=== PATIENT | female | born 1970 | race African-American/Black ===

== ENCOUNTER 2016-09-10 07:59 | Observation (INO) | payer BC ==
[~2016-09-10] VITALS: Ht 167.6 cm; Wt 95.3 kg
--- NOTE | ~2016-09-10 | EKG ---
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
[~2016-09-10 07:59] MED LIST: AMBIEN 10 MG TA10 MG PO; LASIX 20 MG TAB20 MG PO; OXYCONTIN20 M1 PO; ZOCOR40 MG PO
[2016-09-10 08:01] VITALS: BP 129/56
[2016-09-10] MEDS ORDERED: HYDROCODONE-APA1 TA1 PO (08:17)
[2016-09-10 09:01] LABS: ABSOLUTE NEUTROPHILS 2.2 thou/uL (1.4-8.2); EOSINOPHILS 3.9 % (0.0-3.0); HEMATOCRIT 34.1 % (37.0-47.0); HEMOGLOBIN 11.5 gm/dL (12.0-15.0); MCH 29.5 pg (26.0-34.0); MCHC 33.8 g/dL (28.0-37.0); MCV 87.2 fL (80.0-100.0); PLATELET COUNT 317 thou/uL (150-400); POLYS 36.1 % (36.0-66.0); RBC 3.91 mil/uL (4.20-5.00); RDW 13.2 % (10.5-14.5)
[2016-09-10 09:02] LABS: MANUAL DIFF NO
[2016-09-10 09:08] LABS: ANION GAP 6 mmol/L (7-16); BUN 15 mg/dL (7-18); CALCIUM 8.8 mg/dL (8.5-10.1); CHLORIDE 105 mmol/L (98-107); CO2 30 mmol/L (21-32); CREATININE 0.9 mg/dL (0.6-1.0); GLUCOSE 99 mg/dL (74-106); POTASSIUM 3.9 mmol/L (3.5-5.1); SODIUM 141 mmol/L (136-145)
[2016-09-10 09:13] LABS: ALBUMIN 3.7 g/dL (3.4-5.0); ALKALINE PHOSPHATASE 65 U/L (46-116); DIRECT BILIRUBIN < 0.1 mg/dL (<0.1-0.3); SGOT 21 U/L (15-37); SGPT 33 U/L (30-65); TOTAL BILIRUBIN 0.3 mg/dL (<0.1-1.0); TOTAL PROTEIN 7.8 g/dL (6.4-8.2)
[2016-09-10 10:42] VITALS: BP 108/61
[2016-09-10 11:00] VITALS: BP 112/70
[2016-09-10] MEDS ORDERED: LINZESS290 MCG PO (11:49)
[2016-09-10 20:45] VITALS: BP 102/62
[2016-09-11 04:55] VITALS: BP 124/75
[2016-09-11 06:22] LABS: HEMATOCRIT 37.4 % (37.0-47.0); HEMOGLOBIN 12.4 gm/dL (12.0-15.0); MANUAL DIFF YES; MCH 29.5 pg (26.0-34.0); MCHC 33.1 % (28.0-37.0); MCV 89.1 fL (80.0-100.0); PLATELET COUNT 272 thou/uL (150-400); RDW 13.1 % (10.5-14.5)
[2016-09-11 06:25] LABS: ANION GAP 9 mmol/L (7-16); BUN 14 mg/dL (7-18); CALCIUM 9.1 mg/dL (8.5-10.1); CHLORIDE 103 mmol/L (98-107); CHOLESTEROL 258 mg/dL (<200); CO2 25 mmol/L (21-32); CREATININE 0.9 mg/dL (0.6-1.0); GLUCOSE 118 mg/dL (74-106); HDL CHOLESTEROL 80 mg/dL (>40); LDL CHOLESTEROL 163 mg/dL (<100); MAGNESIUM 1.9 mg/dL (1.8-2.4); POTASSIUM 4.2 mmol/L (3.5-5.1); SODIUM 137 mmol/L (136-145); TC:HDL 3.2 Ratio (Not establshd); TRIGLYCERIDE 79 mg/dL (<150); VLDL 16 mg/dL (<40)
[2016-09-11 08:23] VITALS: BP 123/73
[2016-09-11 08:36] LABS: ABSOLUTE NEUTROPHILS 15.2 thou/uL (1.4-8.2); TOTAL CELL COUNT 100
[2016-09-11 08:37] LABS: ANISOCYTOSIS SLIGHT
[2016-09-11 19:20] VITALS: BP 119/69
[2016-09-12 06:20] VITALS: BP 110/70
[2016-09-12 07:50] VITALS: BP 108/67
[2016-09-12] MEDS ORDERED: LYRICA 50 MG50 MG PO (12:35)
[2016-09-12 12:53] VITALS: BP 108/67
== END 2016-09-12 13:27 | disposition home or self-care (01) ==
LOC: ER 07:59 → EROBS 10:17 → 5S 10:50
PROVIDERS: Emergency Medicine; Nurse Practitioner
DX: M25.511 Pain in right shoulder (principal); M54.12 Radiculopathy, cervical region; M54.9 Dorsalgia, unspecified; G89.29 Other chronic pain; K59.09 Other constipation; E78.5 Hyperlipidemia, unspecified; M79.605 Pain in left leg; F19.90 Other psychoactive substance use, unspecified, uncomplicated; Z72.89 Other problems related to lifestyle

== ENCOUNTER 2017-04-20 12:34 | Emergency (ER) | payer BC ==
[~2017-04-20] VITALS: Ht 167.6 cm; Wt 95.3 kg
--- NOTE | ~2017-04-20 | EKG ---
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1970 Requested By: Jeromy Solis Order Number: [id number] MD: Babatunde Lezama Measurements Intervals [place] Rate: 65 P: 57 [place]: 165 QRS: 39 QRSD: 90 T: -11 QT: 397 QTc: 413 Interpretive Statements Sinus rhythm Probable left atrial enlargement RSR' in V1 or V2, right VCD Nonspecific T abnormalities, inferior leads Borderline ST elevation, anterolateral leads Baseline wander in lead(s) V4 Compared to ECG 09/10/2016 15:09:40 Right ventricular hypertrophy now present Inferior T wave abnormality more pronounced Electronically Signed On 04-21-2017 8:21:18 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
[~2017-04-20 12:34] MED LIST changes: +HYDROCODONE-APA1 TA1 PO; +LINZESS290 MCG PO; +LYRICA 50 MG50 MG PO
[2017-04-20] MEDS ORDERED: AMBIEN 5 MG TABL5 M1 PO (12:38)
[2017-04-20 13:51] LABS: ABSOLUTE NEUTROPHILS 2.2 thou/uL (1.4-8.2); BASOPHILS 0.9 % (0.0-2.0); HEMATOCRIT 36.4 % (37.0-47.0); HEMOGLOBIN 12.4 gm/dL (12.0-15.0); LYMPHOCYTES 54.5 % (24.0-44.0); MCH 29.4 pg (26.0-34.0); MCV 86.4 fL (80.0-100.0); MONOCYTES 5.3 % (1.0-8.0); PLATELET COUNT 307 thou/uL (150-400); POLYS 36.3 % (36.0-66.0); RBC 4.22 mil/uL (4.20-5.00); RDW 12.9 % (10.5-14.5)
[2017-04-20 13:59] LABS: ANION GAP 11 mmol/L (7-16); BUN 7 mg/dL (7-18); CALCIUM 9.4 mg/dL (8.5-10.1); CHLORIDE 104 mmol/L (98-107); CO2 27 mmol/L (21-32); CREATININE 0.8 mg/dL (0.6-1.0); GLUCOSE 104 mg/dL (74-106); POTASSIUM 3.9 mmol/L (3.5-5.1); SODIUM 142 mmol/L (136-145)
[2017-04-20 14:08] LABS: TROPONIN-I < 0.04 ng/mL (<0.06)
[2017-04-20] MEDS ORDERED: LIORESAL 10 MG10 MG PO (14:13)
[2017-04-20] MEDS ORDERED: MEDROLDOSEPACK PO (14:13)
[2017-04-20 15:36] VITALS: BP 98/61
== END 2017-04-20 15:57 | disposition home or self-care (01) ==
LOC: ER 12:34
PROVIDERS: Physician Assistant
DX: M54.12 Radiculopathy, cervical region (principal); M25.511 Pain in right shoulder; E78.00 Pure hypercholesterolemia, unspecified; Z90.710 Acquired absence of both cervix and uterus

== ENCOUNTER 2018-04-26 16:20 | Emergency (ER) | payer BC, OTHER ==
[~2018-04-26] VITALS: Ht 167.6 cm; Wt 93.9 kg
[~2018-04-26 16:20] MED LIST changes: +AMBIEN 5 MG TABL5 M1 PO; +LIORESAL 10 MG10 MG PO; +MEDROLDOSEPACK PO
[2018-04-26 17:27] VITALS: BP 120/81
[2018-04-26] MEDS ORDERED: XANAX 0.5 MG0.5 MG PO (17:40)
== END 2018-04-26 18:03 | disposition home or self-care (01) ==
LOC: ER 16:20
DX: M54.12 Radiculopathy, cervical region (principal); E78.00 Pure hypercholesterolemia, unspecified; Z90.710 Acquired absence of both cervix and uterus; Z95.5 Presence of coronary angioplasty implant and graft

== ENCOUNTER → 2018-04-30 | Outpatient (CLI) | payer BC ==
[~2018-04-30] MED LIST changes: +XANAX 0.5 MG0.5 MG PO
== END ==
LOC: MRI 13:55
DX: M47.812 Spondylosis without myelopathy or radiculopathy, cervical region (principal)

== ENCOUNTER → 2018-05-11 | Outpatient (CLI) | payer BC | LOC: MRI 07:14 | DX: M25.511 Pain in right shoulder (principal) ==

== ENCOUNTER → 2018-07-21 | Outpatient (CLI) | payer BC | LOC: RAD 11:22 | DX: N63.10 Unspecified lump in the right breast, unspecified quadrant (principal); R92.2 Inconclusive mammogram ==

== ENCOUNTER → 2019-02-15 | Outpatient (CLI) | payer BC | LOC: ULTRA 12:35 | DX: N63.20 Unspecified lump in the left breast, unspecified quadrant (principal) ==

== ENCOUNTER 2019-05-03 13:57 | Emergency (ER) | payer BC ==
[~2019-05-03] VITALS: Ht 177.8 cm; Wt 104.3 kg
[2019-05-03] MEDS ORDERED: MOBIC7.5 MG PO (15:47)
[2019-05-03] MEDS ORDERED: NORFLEX100 MG PO (16:11)
[2019-05-03 16:15] VITALS: BP 110/82
== END 2019-05-03 16:15 | disposition home or self-care (01) ==
LOC: ER 13:57
DX: M25.512 Pain in left shoulder (principal); E78.00 Pure hypercholesterolemia, unspecified; Z90.710 Acquired absence of both cervix and uterus; Z90.49 Acquired absence of other specified parts of digestive tract

== ENCOUNTER 2019-12-15 17:48 | Emergency (ER) | payer BC ==
[~2019-12-15] VITALS: Ht 167.6 cm; Wt 95.3 kg
[~2019-12-15 17:48] MED LIST changes: +MOBIC7.5 MG PO; +NORFLEX100 MG PO
[2019-12-15 20:37] LABS: URINE BILIRUBIN NEGATIVE (Negative); URINE BLOOD NEGATIVE (Negative); URINE CLARITY CLEAR; URINE COLOR YELLOW; URINE GLUCOSE-RANDOM* NEGATIVE (Negative); URINE KETONES NEGATIVE (Negative); URINE LEUKOCYTES-REFLEX NEGATIVE (Negative); URINE NITRITE-REFLEX NEGATIVE (Negative); URINE PROTEIN (DIPSTICK) NEGATIVE (Negative); URINE UROBILINOGEN 0.2 E.U./dl (0.2-1.0)
[2019-12-15 20:39] LABS: ANION GAP 11 mmol/L (7-16); BUN 13 mg/dL (7-18); CALCIUM 9.1 mg/dL (8.5-10.1); CHLORIDE 103 mmol/L (98-107); CO2 23 mmol/L (21-32); CREATININE 0.8 mg/dL (0.6-1.0); GLUCOSE 92 mg/dL (74-106); POTASSIUM 4.9 mmol/L (3.5-5.1); SODIUM 137 mmol/L (136-145)
[2019-12-15 20:46] LABS: AMP/METHAMP Negative (Negative); BARBITURATES Negative (Negative); BENZODIAZEPINES Negative (Negative); COCAINE Negative (Negative); METHADONE Negative (Negative); OPIATES Negative (Negative); PCP Negative (Negative)
[2019-12-15 20:47] LABS: ABSOLUTE NEUTROPHILS 6.4 thou/uL (1.4-8.2); BASOPHILS 0.8 % (0.0-2.0); HEMATOCRIT 35.2 % (37.0-47.0); HEMOGLOBIN 12.1 gm/dL (12.0-15.0); LYMPHOCYTES 26.1 % (24.0-44.0); MCH 30.1 pg (26.0-34.0); MCHC 34.5 g/dL (28.0-37.0); MCV 87.3 fL (80.0-100.0); MONOCYTES 5.4 % (1.0-8.0); PLATELET COUNT 381 thou/uL (150-400); POLYS 66.7 % (36.0-66.0); RBC 4.03 mil/uL (4.20-5.00); WBC 9.6 thou/uL (4.0-11.0)
[2019-12-15 20:49] LABS: ALBUMIN 4.1 g/dL (3.4-5.0); SGOT 27 U/L (15-37); SGPT 19 U/L (30-65); TOTAL BILIRUBIN 0.7 mg/dL (0.2-1.0); TOTAL PROTEIN 8.5 g/dL (6.4-8.2); TROPONIN-I <0.06 ng/mL (<0.06)
[2019-12-15 21:12] VITALS: BP 104/62
--- NOTE | 2019-12-16 07:52 | EKG ---
[facility] [place] [address] ELECTROCARDIOGRAM REPORT Name: ERENDIRA KC [id number] Admission: 12/15/19 Attend Phys: Discharge: 12/15/19 Date of : 72 Report #: [id number] THIS REPORT FOR: cc: Khris Baca James A. DO Lundgren, Craig H. 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1970 Requested By: Enrique Jones Order Number: [id number] MD: Babatunde Lezama Measurements Intervals [place] Rate: 71 P: 63 [place]: 164 QRS: 46 QRSD: 88 T: -8 QT: 390 QTc: 424 Interpretive Statements Sinus rhythm Probable left atrial enlargement RSR' in V1 or V2, right VCD Probable left ventricular hypertrophy Borderline T abnormalities, inferior leads Early repolarization Compared to ECG 04/20/2017 14:14:20 No significant change was found Electronically Signed On 12-16-2019 7:52:37 CDT by Babatunde Lezama [email or web address] <ELECTRONICALLY SIGNED> By: Babatunde Lezama MD, FACC 12/16/19 0752 13 13 Babatunde Lezama MD, FAC /EPI
== END 2019-12-15 21:13 | disposition home or self-care (01) ==
LOC: ER 17:48
PROVIDERS: Emergency Medicine
DX: G89.29 Other chronic pain (principal); M54.9 Dorsalgia, unspecified; R55 Syncope and collapse; R53.1 Weakness; R42 Dizziness and giddiness; M79.632 Pain in left forearm; R11.0 Nausea

== ENCOUNTER → 2020-06-01 | Outpatient (CLI) | payer BC | LOC: BC 12:54 | PROVIDERS: ATTEND Family Medicine | DX: Z12.31 Encounter for screening mammogram for malignant neoplasm of breast (principal); N64.89 Other specified disorders of breast ==

== ENCOUNTER 2020-07-06 16:40 | Emergency (ER) | payer OTHER, BC ==
[~2020-07-06] VITALS: Ht 167.6 cm; Wt 100.7 kg
[2020-07-06 18:38] VITALS: BP 121/79
== END 2020-07-06 18:38 | disposition home or self-care (01) ==
LOC: ER 16:40
DX: S16.1XXA Strain of muscle, fascia and tendon at neck level, initial encounter (principal); S39.012A Strain of muscle, fascia and tendon of lower back, initial encounter; S80.02XA Contusion of left knee, initial encounter; E78.00 Pure hypercholesterolemia, unspecified; Z90.710 Acquired absence of both cervix and uterus; Z79.899 Other long term (current) drug therapy; V49.88XA Car occupant (driver) (passenger) injured in other specified transport accidents, initial encounter; Y93.89 Activity, other specified; Y92.413 State road as the place of occurrence of the external cause; Y99.8 Other external cause status

== ENCOUNTER → 2020-11-28 | Outpatient (CLI) | payer OTHER | LOC: CAT 14:50 | PROVIDERS: ATTEND Family Medicine | DX: Z13.6 Encounter for screening for cardiovascular disorders (principal); E78.00 Pure hypercholesterolemia, unspecified; I25.10 Atherosclerotic heart disease of native coronary artery without angina pectoris ==

== ENCOUNTER 2021-01-11 12:25 | Emergency (ER) | payer BC ==
[~2021-01-11] VITALS: Ht 167.6 cm; Wt 100.2 kg
[2021-01-11] MEDS ORDERED: DICLOFENAC SOD100 G1 TOP (14:51)
[2021-01-11 15:01] VITALS: BP 110/74
== END 2021-01-11 15:02 | disposition left against medical advice (07) ==
LOC: ER 12:25
DX: M79.604 Pain in right leg (principal); E78.00 Pure hypercholesterolemia, unspecified; Z90.710 Acquired absence of both cervix and uterus; Z90.49 Acquired absence of other specified parts of digestive tract; Z98.890 Other specified postprocedural states; Z79.1 Long term (current) use of non-steroidal anti-inflammatories (NSAID); Z79.891 Long term (current) use of opiate analgesic; Z79.899 Other long term (current) drug therapy

== ENCOUNTER → 2021-01-12 | Emergency (ER) | payer BC ==
[~2021-01-12] VITALS: Ht 167.6 cm; Wt 100.2 kg
[~2021-01-12] MED LIST changes: +DICLOFENAC SOD100 G1 TOP
== END ==
LOC: ER 08:56
DX: M25.561 Pain in right knee (principal); E78.00 Pure hypercholesterolemia, unspecified; Z90.710 Acquired absence of both cervix and uterus; Z98.890 Other specified postprocedural states; Z90.49 Acquired absence of other specified parts of digestive tract; Z79.1 Long term (current) use of non-steroidal anti-inflammatories (NSAID); Z79.891 Long term (current) use of opiate analgesic; Z79.899 Other long term (current) drug therapy